=== PATIENT | female | born 2000 | race African-American/Black ===

== ENCOUNTER 2021-08-02 16:14 | Emergency (ER) | payer OTHER ==
[~2021-08-02] VITALS: Ht 167.6 cm; Wt 118.0 kg
[2021-08-02 16:39] VITALS: BP 157/85
--- NOTE | 2021-08-02 17:01 | PHYS DOC ---
Past History Past Surgical History: No Surgical History (KHRIS SANCHEZ APRN) General Adult EDM: Chief Complaint: EARACHE/EAR PAIN HPI: HPI: Patient is a 21-year-old female who presents to the emergency department for left ear pain. Patient describes it as a pressure pain. She was at the urgent care 2 days ago and got discharged home with an antibiotic. She reports that she took ibuprofen this morning for her pain. (KHRIS SANCHEZ APRN) Review of Systems: Review of Systems: Constitutional: Denies fever or chills Eyes: Denies change in visual acuity HENT:see hPI Respiratory: Denies cough or shortness of breath Cardiovascular: Denies chest pain or edema GI: Denies abdominal pain, nausea, vomiting, bloody stools or diarrhea : Denies dysuria Musculoskeletal: Denies back pain or joint pain Integument: Denies rash Neurologic: Denies headache, focal weakness or sensory changes Endocrine: Denies polyuria or polydipsia Lymphatic: Denies swollen glands Psychiatric: Denies depression or anxiety (KHRIS SANCHEZ APRN) Allergies: Allergies: Allergies Coded Allergies Type Severity Reaction Last Updated Verified No Known Drug Allergies 08/02/21 No (KHRIS SANCHEZ APRN) Physical Exam: PE: Constitutional: Well developed, well nourished, no acute distress, non-toxic appearance. [] HENT: Normocephalic, atraumatic, bilateral external ears normal, mild erythema noted to left TM but is intact oropharynx moist, no swelling or redness noted to mastoid region, no tonsillar enlargement or erythema, uvula midline, no t rismus or phonation changes no oral exudates, nose normal. [] Eyes: PERRL, EOMI, conjunctiva normal, no discharge. [] Neck: Normal range of motion, no tenderness, supple, no stridor. [] Cardiovascular:Heart rate regular rhythm, no murmur [] Lungs & Thorax: Bilateral breath sounds clear to auscultation [] Abdomen: Soft and obese Skin: Warm, dry, no erythema, no rash. [] Back: No tenderness, normal range of motion Extremities: No tenderness, no cyanosis, no clubbing, ROM intact, no edema. [] Neurologic: Alert and oriented X 3, normal motor function, normal sensory funct ion, no focal deficits noted. [] Psychologic: Affect normal, judgement normal, mood normal. [] (KHRIS SANCHEZ APRN) Current Patient Data: Vital Signs: Vital Signs Date Time Temp Pulse Resp B/P (MAP) Pulse Ox O2 Delivery O2 Flow Rate FiO2 08/02/21 16:39 98.9 52 16 157/85 (109) 98 Room Air (KHRIS SANCHEZ APRN) EKG: EKG: [] (KHRIS SANCHEZ APRN) Radiology/Procedures: Radiology/Procedures: [] (KHRIS SANCHEZ APRN) Heart Score: C/O Chest Pain: N/A Risk Factors: Risk Factors: DM, Current or recent (<one month) smoker, HTN, HLP, family history of CAD, obesity. Risk Scores: Score 0 - 3: 2.5% MACE over next 6 weeks - Discharge Home Score 4 - 6: 20.3% MACE over next 6 weeks - Admit for Clinical Observation Score 7 - 10: 72.7% MACE over next 6 weeks - Early Invasive Strategies (KHRIS SANCHEZ APRN) Course & Med Decision Making: Course & Med Decision Making Pertinent Labs and Imaging studies reviewed. (See chart for details) [] Patient Zentz to the emergency department for left ear pain. Patient was diagnosed with an ear infection at the urgent care 2 days ago and got started on antibiotic. She took ibuprofen this morning without relief in her symptoms. Patient is advised to continue taking the antibiotic it appears that she has mild erythema to her left tympanic membrane but it is intact, her vital signs are stable and her physical exam is reassuring. She is advised to take Tylenol and ibuprofen at home for her pain. I discussed with patient all findings and diagnostic testing as well as the need to follow-up with PCP for further evaluation and treatment or return to the ER if any new or worsening symptoms. Strict return precautions were also discussed at length. Patient voiced understanding and agreement with the plan. Patient is hemodynamically stable at the time of disposition. (KHRIS SANCHEZ APRN) Dragon Disclaimer: Dragon Disclaimer: This electronic medical record was generated, in whole or in part, using a voice recognition dictation system. (KHRIS SANCHEZ APRN) Attending Co-Sign The patient was seen and interviewed as well as examined at the bedside. The chart was reviewed. The case was discussed. Agree with the plan of care. (LOUIE HAIRSTON DO) Departure Departure: Impression: Primary Impression: Otitis media Qualified Codes: H66.90 - Otitis media, unspecified, unspecified ear Disposition: HOME / SELF CARE / HOMELESS Condition: GOOD Patient Instructions: Otitis Media, Adult Additional Instructions: You are seen in the emergency department today for ear pain. Continue take the antibiotics as previously prescribed for you. Take Tylenol and ibuprofen as directed. Your blood pressure was mildly elevated in the emergency department today, please monitor and follow-up with your primary care provider regarding this. Follow-up with your primary care provider tomorrow regarding your ER visit. Return to the emergency department if you develop shortness of breath, high fevers refractory treatment, tractable nausea or vomiting or any new worsening concerns KHRIS SANCHEZ APRN August 02, 2021 17:01 LOUIE HAIRSTON DO August 03, 2021 11:26
== END 2021-08-02 17:07 | disposition home or self-care (01) ==
LOC: ER 16:14
DX: H66.92 Otitis media, unspecified, left ear (principal)
CPT/HCPCS: 99282